=== PATIENT | female | born 1985 | race Caucasian/White ===

== ENCOUNTER 2017-03-23 23:21 | Emergency (ER) | payer SELFPAY ==
[2015-09-18 11:11] VITALS: BMI 19.4
[~2017-03-23 23:21] MED LIST: COLACE100 MG PO; HYDROCODONE-APA1 TAB PO; LYRICA150 MG PO; LYRICA75 MG PO; METAMUCIL FIB1 WAFER PO; PAXIL10 MG PO; PAXIL30 MG PO; PROTONIX I40 MG/VIAL PO; THORAZINE50 MG PO; TRAZODONE HCL150 MG; XANAX1 MG PO
[2017-03-23 23:46] LABS: HEMATOCRIT 37.7 % (36.0-48.0); HEMOGLOBIN 12.9 g/dL (12-16); LYMPHOCYTES 20.6 % (15-50); MCH 30.4 pg (26.0-34.0); MCHC 34.2 g/dL (31.0-37.0); MCV 88.7 fL (80.0-100.0); MEAN PLATELET VOLUME 9.6 fL (7.4-10.4); NEUTROPHILS 72.6 % (40-80); RBC 4.25 10x6/uL (4.00-5.40); RDW 12.8 % (11.5-14.5); WBC 8.2 10x3/uL (4.8-10.8)
[2017-03-23 23:49] LABS: PLATELET COUNT 283 10x3/uL (130-400)
[2017-03-23 23:50] LABS: APPEARANCE CLEAR (CLEAR); BILIRUBIN NEGATIVE (NEGATIVE); COLOR YELLOW (YELLOW); GLUCOSE NEGATIVE (NEGATIVE); KETONE NEGATIVE (NEGATIVE); NITRITE NEGATIVE (NEGATIVE); PROTEIN NEGATIVE (NEGATIVE); UROBILINOGEN NORMAL (NORMAL)
[2017-03-24 00:04] LABS: ALKALINE PHOSPHATASE 73 U/L (46-116); ALT (SGPT) 20 U/L (10-68); AMYLASE - SERUM 30 U/L (25-115); CARBON DIOXIDE 29.4 mmol/L (21.0-32.0); CREATININE - SERUM 0.9 mg/dL (0.6-1.3); GLUCOSE 105 mg/dL (74-106); HCG URINE NEGATIVE (NEGATIVE); LIPASE 64 U/L (73-393); PROTEIN - SERUM 7.4 g/dL (6.4-8.2); eGFR NON AFRICAN AMERICAN 78 mL/min (90-120)
[2017-03-24 00:17] LABS: CHLORIDE - SERUM 99 mmol/L (98-107); SODIUM 138 mmol/L (136-145)
[2017-03-24 00:20] LABS: CALC OSMOLALITY 274 mosm/kg (275-300); UREA NITROGEN 10 mg/dL (7-18)
[2017-03-24 00:22] LABS: POTASSIUM - SERUM 2.9 mmol/L (3.5-5.1)
== END 2017-03-24 04:30 | disposition home or self-care (01) ==
LOC: D.ER 23:21
PROVIDERS: Emergency Medicine
DX: R10.9 Unspecified abdominal pain (principal); K80.50 Calculus of bile duct without cholangitis or cholecystitis without obstruction

== ENCOUNTER 2017-03-24 18:13 | Emergency (ER) | payer SELFPAY ==
[2015-09-18 11:11] VITALS: BMI 19.4
[2017-03-24 20:06] LABS: BASOPHILS 0.4 % (0-2); EOSINOPHILS 7.2 % (0-7); HEMATOCRIT 38.2 % (36.0-48.0); HEMOGLOBIN 12.6 g/dL (12-16); IMMATURE GRANULOCYTES 0.2 % (0-5); LYMPHOCYTES 45.1 % (15-50); MCH 30.2 pg (26.0-34.0); MEAN PLATELET VOLUME 10.3 fL (7.4-10.4); MONOCYTES 6.1 % (2-11); PLATELET COUNT 227 10x3/uL (130-400); RBC 4.17 10x6/uL (4.00-5.40); RDW 13.5 % (11.5-14.5)
[2017-03-24 20:07] LABS: MCV 91.6 fL (80.0-100.0); WBC 4.6 10x3/uL (4.8-10.8)
[2017-03-24 20:34] LABS: ALBUMIN 3.6 g/dL (3.4-5.0); ALKALINE PHOSPHATASE 71 U/L (46-116); ALT (SGPT) 17 U/L (10-68); CALC OSMOLALITY 275 mosm/kg (275-300); CALCIUM 8.6 mg/dL (8.5-10.1); CARBON DIOXIDE 29.4 mmol/L (21.0-32.0); CHLORIDE - SERUM 104 mmol/L (98-107); CREATININE - SERUM 0.7 mg/dL (0.6-1.3); GLUCOSE 99 mg/dL (74-106); PROTEIN - SERUM 6.7 g/dL (6.4-8.2); SODIUM 139 mmol/L (136-145); UREA NITROGEN 8 mg/dL (7-18); eGFR NON AFRICAN AMERICAN > 90 mL/min (90-120)
[2017-03-24 20:37] LABS: POTASSIUM - SERUM 4.1 mmol/L (3.5-5.1)
[2017-03-24 20:52] LABS: APPEARANCE CLEAR (CLEAR); BILIRUBIN NEGATIVE (NEGATIVE); COLOR YELLOW (YELLOW); GLUCOSE NEGATIVE (NEGATIVE); KETONE NEGATIVE (NEGATIVE); NITRITE NEGATIVE (NEGATIVE); PROTEIN NEGATIVE (NEGATIVE); UROBILINOGEN NORMAL (NORMAL)
== END 2017-03-24 23:45 | disposition home or self-care (01) ==
LOC: D.ER 18:13
PROVIDERS: Physician Assistant Medical
DX: R10.9 Unspecified abdominal pain (principal); F17.200 Nicotine dependence, unspecified, uncomplicated

== ENCOUNTER 2017-04-24 09:58 | Emergency (ER) | payer SELFPAY ==
[2015-09-18 11:11] VITALS: BMI 19.4
== END 2017-04-24 11:14 | disposition home or self-care (01) ==
LOC: D.ER 09:58
DX: J11.1 Influenza due to unidentified influenza virus with other respiratory manifestations (principal); F17.200 Nicotine dependence, unspecified, uncomplicated

== ENCOUNTER 2017-05-31 13:28 | Emergency (ER) | payer SELFPAY ==
[2015-09-18 11:11] VITALS: BMI 19.4
== END 2017-05-31 16:28 | disposition home or self-care (01) ==
LOC: D.ER 13:28
DX: M54.12 Radiculopathy, cervical region (principal); F17.200 Nicotine dependence, unspecified, uncomplicated

== ENCOUNTER 2019-02-14 13:48 | Emergency (ER) | payer SELFPAY ==
[~2019-02-14] VITALS: Ht 167.6 cm; Wt 59.1 kg
[2019-02-14 13:55] VITALS: Ht 167.6 cm; Wt 59.1 kg
[2019-02-14] MEDS ORDERED: KEPPRA750 MG PO (13:57)
[2019-02-14] MEDS ORDERED: TOPAMAX50 MG PO (13:57)
[2019-02-14] MEDS ORDERED: TYLENOL W/CODEI1 TAB PO (13:58)
[2019-02-14] MEDS ORDERED: NEURONTIN 300300 MG PO (13:58)
[2019-02-14 14:39] LABS: HEMATOCRIT 42.5 % (36.0-48.0); HEMOGLOBIN 14.2 g/dL (12-16); LYMPHOCYTES 30.7 % (15-50); MCHC 33.4 g/dL (31.0-37.0); MCV 83.7 fL (80.0-100.0); MEAN PLATELET VOLUME 12.5 fL (7.4-10.4); NEUTROPHILS 60.4 % (40-80); PLATELET COUNT 263 10x3/uL (130-400); RBC 5.08 10x6/uL (4.00-5.40); WBC 7.1 10x3/uL (4.8-10.8)
[2019-02-14 14:40] LABS: APPEARANCE CLEAR (CLEAR); BILIRUBIN NEGATIVE (NEGATIVE); COLOR YELLOW (YELLOW); GLUCOSE NEGATIVE (NEGATIVE); KETONE NEGATIVE (NEGATIVE); NITRITE NEGATIVE (NEGATIVE); PROTEIN NEGATIVE (NEGATIVE); SPECIFIC GRAVITY 1.015 (1.005-1.020); UROBILINOGEN NORMAL (NORMAL)
[2019-02-14 14:45] LABS: ALBUMIN 4.6 g/dL (3.4-5.0); ALKALINE PHOSPHATASE 65 U/L (46-116); ALT (SGPT) 16 U/L (10-68); BILIRUBIN - TOTAL 0.41 mg/dL (0.2-1.3); CALC OSMOLALITY 277 mosm/kg (275-300); CALCIUM 9.8 mg/dL (8.5-10.1); CARBON DIOXIDE 22.8 mmol/L (21.0-32.0); CHLORIDE - SERUM 102 mmol/L (98-107); CREATININE - SERUM 0.9 mg/dL (0.6-1.3); GLUCOSE 120 mg/dL (74-106); POTASSIUM - SERUM 3.4 mmol/L (3.5-5.1); PROTEIN - SERUM 8.2 g/dL (6.4-8.2); SODIUM 140 mmol/L (136-145); UREA NITROGEN 8 mg/dL (7-18); eGFR NON AFRICAN AMERICAN 77 mL/min (90-120)
[2019-02-14 14:47] LABS: CREATINE KINASE 50 UL (21-215); MAGNESIUM - SERUM 2.3 mg/dL (1.8-2.4)
[2019-02-14 15:01] LABS: UDS - AMPHET POSITIVE QUAL (NEGATIVE); UDS - BARB NEGATIVE QUAL (NEGATIVE); UDS - BENZO POSITIVE QUAL (NEGATIVE); UDS - COCAINE NEGATIVE QUAL (NEGATIVE); UDS - OPIATE NEGATIVE QUAL (NEGATIVE); UDS - PCP NEGATIVE QUAL (NEGATIVE); UDS - THC POSITIVE QUAL (NEGATIVE)
[2019-02-14 15:03] LABS: HCG SERUM NEGATIVE (NEGATIVE)
[2019-02-14 16:35] VITALS: BP 132/79
== END 2019-02-14 16:35 | disposition home or self-care (01) ==
LOC: D.ER 13:48
PROVIDERS: Family Medicine
DX: R56.9 Unspecified convulsions (principal)

== ENCOUNTER 2019-02-24 19:34 | Emergency (ER) | payer SELFPAY ==
[~2019-02-24] VITALS: Ht 167.6 cm; Wt 59.1 kg
[~2019-02-24 19:34] MED LIST changes: +KEPPRA750 MG PO; +NEURONTIN 300300 MG PO; +TOPAMAX50 MG PO; +TYLENOL W/CODEI1 TAB PO
[2019-02-24 19:41] VITALS: Ht 167.6 cm; Wt 59.1 kg
[2019-02-24 20:45] LABS: BASOPHILS 0.8 % (0-2); EOSINOPHILS 5.8 % (0-7); HEMATOCRIT 37.5 % (36.0-48.0); HEMOGLOBIN 12.3 g/dL (12-16); LYMPHOCYTES 31.7 % (15-50); MCHC 32.8 g/dL (31.0-37.0); MCV 85.4 fL (80.0-100.0); MONOCYTES 9.8 % (2-11); NEUTROPHILS 51.9 % (40-80); PLATELET COUNT 269 10x3/uL (130-400); RBC 4.39 10x6/uL (4.00-5.40); RDW 16.5 % (11.5-14.5); WBC 6.5 10x3/uL (4.8-10.8)
[2019-02-24 20:57] LABS: ALKALINE PHOSPHATASE 55 U/L (46-116); ALT (SGPT) 15 U/L (10-68); BILIRUBIN - TOTAL 0.45 mg/dL (0.2-1.3); CALC OSMOLALITY 286 mosm/kg (275-300); CALCIUM 8.8 mg/dL (8.5-10.1); CARBON DIOXIDE 18.2 mmol/L (21.0-32.0); CHLORIDE - SERUM 111 mmol/L (98-107); CREATININE - SERUM 0.8 mg/dL (0.6-1.3); GLUCOSE 98 mg/dL (74-106); POTASSIUM - SERUM 3.4 mmol/L (3.5-5.1); PROTEIN - SERUM 6.9 g/dL (6.4-8.2); SODIUM 145 mmol/L (136-145); UREA NITROGEN 7 mg/dL (7-18); eGFR NON AFRICAN AMERICAN 89 mL/min (90-120)
[2019-02-24 21:19] LABS: APPEARANCE CLEAR (CLEAR); BILIRUBIN NEGATIVE (NEGATIVE); COLOR YELLOW (YELLOW); GLUCOSE NEGATIVE (NEGATIVE); KETONE MODERATE mg/dL (NEGATIVE); NITRITE NEGATIVE (NEGATIVE); PROTEIN TRACE mg/dL (NEGATIVE); SPECIFIC GRAVITY 1.015 (1.005-1.020); UROBILINOGEN NORMAL (NORMAL)
[2019-02-24 21:20] LABS: BACTERIA FEW /hpf (NEGATIVE); EPITHELIAL CELLS 0-5 /hpf (0-5); RED CELLS - URINE 0-5 /hpf (0-5); WHITE CELLS - URINE 0-5 /hpf (NEGATIVE)
[2019-02-24 21:21] LABS: UDS - AMPHET POSITIVE QUAL (NEGATIVE); UDS - BARB NEGATIVE QUAL (NEGATIVE); UDS - BENZO POSITIVE QUAL (NEGATIVE); UDS - COCAINE NEGATIVE QUAL (NEGATIVE); UDS - OPIATE NEGATIVE QUAL (NEGATIVE); UDS - PCP NEGATIVE QUAL (NEGATIVE); UDS - THC POSITIVE QUAL (NEGATIVE)
[2019-02-25 00:02] VITALS: BP 118/61
== END 2019-02-25 00:02 | disposition home or self-care (01) ==
LOC: D.ER 19:34
PROVIDERS: Family Medicine
DX: G40.909 Epilepsy, unspecified, not intractable, without status epilepticus (principal)

== ENCOUNTER 2019-04-07 14:07 | Emergency (ER) | payer SELFPAY ==
[~2019-04-07] VITALS: Ht 167.6 cm; Wt 59.1 kg
[2019-04-07 14:34] VITALS: Ht 167.6 cm; Wt 59.1 kg
[2019-04-07 15:22] LABS: HEMATOCRIT 42.8 % (36.0-48.0); HEMOGLOBIN 14.1 g/dL (12-16); LYMPHOCYTES 30.9 % (15-50); MCH 29.4 pg (26.0-34.0); MCHC 32.9 g/dL (31.0-37.0); MCV 89.4 fL (80.0-100.0); MEAN PLATELET VOLUME 11.3 fL (7.4-10.4); NEUTROPHILS 60.8 % (40-80); PLATELET COUNT 270 10x3/uL (130-400); RBC 4.79 10x6/uL (4.00-5.40); RDW 18.3 % (11.5-14.5); WBC 5.8 10x3/uL (4.8-10.8)
[2019-04-07 15:31] LABS: APPEARANCE HAZY (CLEAR); BILIRUBIN NEGATIVE (NEGATIVE); COLOR YELLOW (YELLOW); GLUCOSE NEGATIVE (NEGATIVE); KETONE NEGATIVE (NEGATIVE); NITRITE NEGATIVE (NEGATIVE); PROTEIN NEGATIVE (NEGATIVE); UROBILINOGEN NORMAL (NORMAL)
[2019-04-07 15:33] LABS: BACTERIA FEW /hpf (NEGATIVE); EPITHELIAL CELLS 0-5 /hpf (0-5); WHITE CELLS - URINE 0-5 /hpf (NEGATIVE)
[2019-04-07 15:34] LABS: HCG SERUM NEGATIVE (NEGATIVE)
[2019-04-07 15:35] LABS: CALC OSMOLALITY 285 mosm/kg (275-300); CALCIUM 8.8 mg/dL (8.5-10.1); CARBON DIOXIDE 29.3 mmol/L (21.0-32.0); CHLORIDE - SERUM 104 mmol/L (98-107); CREATININE - SERUM 0.7 mg/dL (0.6-1.3); GLUCOSE 104 mg/dL (74-106); POTASSIUM - SERUM 3.4 mmol/L (3.5-5.1); SODIUM 145 mmol/L (136-145); UREA NITROGEN 5 mg/dL (7-18); eGFR NON AFRICAN AMERICAN > 90 mL/min (90-120)
[2019-04-07 15:46] LABS: ALKALINE PHOSPHATASE 58 U/L (46-116); ALT (SGPT) 18 U/L (10-68); BILIRUBIN - TOTAL 0.28 mg/dL (0.2-1.3); HCG - QUANTITATIVE (MATERNAL) 1 mIU/mL; PROTEIN - SERUM 7.6 g/dL (6.4-8.2)
[2019-04-07] MEDS ORDERED: TYLENOL W/CODEI1 TAB PO (18:50)
[2019-04-07 19:32] VITALS: BP 127/73
[2019-04-08] MEDS ORDERED: HYDROCODON-ACE1 EA10 PO (16:51)
[2019-04-08] MEDS ORDERED: ROBAXIN500 MG PO (16:51)
== END 2019-04-07 19:32 | disposition home or self-care (01) ==
LOC: D.ER 14:07
PROVIDERS: Family Medicine
DX: O03.9 Complete or unspecified spontaneous abortion without complication (principal); R52 Pain, unspecified; R25.2 Cramp and spasm

== ENCOUNTER 2019-04-08 15:40 | Emergency (ER) | payer SELFPAY ==
[~2019-04-08] VITALS: Ht 167.6 cm; Wt 56.8 kg
[2019-04-08 15:56] VITALS: Ht 167.6 cm; Wt 56.8 kg
[2019-04-08] MEDS ORDERED: ROBAXIN500 MG PO (16:51)
[2019-04-08] MEDS ORDERED: HYDROCODON-ACE1 EA10 PO (16:51)
[2019-04-08 17:22] VITALS: BP 128/95
== END 2019-04-08 17:18 | disposition home or self-care (01) ==
LOC: D.ER 15:40
DX: O03.9 Complete or unspecified spontaneous abortion without complication (principal); R52 Pain, unspecified

== ENCOUNTER 2019-05-01 18:37 | Emergency (ER) | payer SELFPAY ==
[~2019-05-01] VITALS: Ht 167.6 cm; Wt 59.1 kg
[~2019-05-01 18:37] MED LIST changes: +HYDROCODON-ACE1 EA10 PO; +ROBAXIN500 MG PO
[2019-05-01 18:42] VITALS: Ht 167.6 cm; Wt 59.1 kg
[2019-05-01 19:32] LABS: BASOPHILS 0.1 % (0-2); EOSINOPHILS 0 % (0-7); HEMATOCRIT 42.3 % (36.0-48.0); HEMOGLOBIN 13.8 g/dL (12-16); IMMATURE GRANULOCYTES 0.1 % (0-5); LYMPHOCYTES 7.7 % (15-50); MCH 29.9 pg (26.0-34.0); MCHC 32.6 g/dL (31.0-37.0); MCV 91.8 fL (80.0-100.0); MEAN PLATELET VOLUME 11.5 fL (7.4-10.4); MONOCYTES 2.9 % (2-11); NEUTROPHILS 89.2 % (40-80); RBC 4.61 10x6/uL (4.00-5.40); RDW 17.7 % (11.5-14.5); WBC 11.6 10x3/uL (4.8-10.8)
[2019-05-01 19:33] LABS: PLATELET COUNT 332 10x3/uL (130-400)
[2019-05-01 19:41] LABS: CALC OSMOLALITY 281 mosm/kg (275-300); CALCIUM 9.6 mg/dL (8.5-10.1); CHLORIDE - SERUM 105 mmol/L (98-107); CREATININE - SERUM 0.7 mg/dL (0.6-1.3); GLUCOSE 145 mg/dL (74-106); POTASSIUM - SERUM 4.1 mmol/L (3.5-5.1); SODIUM 139 mmol/L (136-145); UREA NITROGEN 14 mg/dL (7-18); eGFR NON AFRICAN AMERICAN > 90 mL/min (90-120)
[2019-05-01 19:47] LABS: ALBUMIN 3.8 g/dL (3.4-5.0); ALKALINE PHOSPHATASE 69 U/L (46-116); ALT (SGPT) 16 U/L (10-68); PROTEIN - SERUM 8.2 g/dL (6.4-8.2)
[2019-05-01 19:51] LABS: BILIRUBIN - TOTAL 0.08 mg/dL (0.2-1.3)
[2019-05-01] MEDS ORDERED: ALBUTEROL SULF8.5 GM INH (20:29)
[2019-05-01] MEDS ORDERED: ULTRAM50 MG PO (20:29)
[2019-05-01 21:24] VITALS: BP 117/69
== END 2019-05-01 21:24 | disposition home or self-care (01) ==
LOC: D.ER 18:37
PROVIDERS: Emergency Medicine
DX: H66.91 Otitis media, unspecified, right ear (principal); Z72.0 Tobacco use; J40 Bronchitis, not specified as acute or chronic

== ENCOUNTER 2019-05-04 13:19 | Emergency (ER) | payer SELFPAY ==
[~2019-05-04] VITALS: Ht 167.6 cm; Wt 59.1 kg
[~2019-05-04 13:19] MED LIST changes: +ALBUTEROL SULF8.5 GM INH; +ULTRAM50 MG PO
[2019-05-04 13:23] VITALS: BP 136/86; Ht 167.6 cm; Wt 59.1 kg
[2019-05-04] MEDS ORDERED: AMOXICILLIN500 M1 PO (13:26)
[2019-05-04] MEDS ORDERED: PREDNISONE10 MG PO (13:27)
[2019-05-04] MEDS ORDERED: PHENERGAN6.25 MG/5 PO (13:30)
[2019-05-04] MEDS ORDERED: GENTAK3.5 GM EACH EYE (14:16)
[2019-05-04] MEDS ORDERED: FLUTICASONE PRO16 GM NASAL (14:21)
[2019-05-04] MEDS ORDERED: TESSALON PERLE100 MG PO (15:41)
[2019-05-04] MEDS ORDERED: OMNICEF300 MG PO (15:41)
== END 2019-05-04 16:23 | disposition home or self-care (01) ==
LOC: D.ER 13:19
DX: H66.91 Otitis media, unspecified, right ear (principal); J40 Bronchitis, not specified as acute or chronic; Z72.0 Tobacco use

== ENCOUNTER 2019-05-13 16:00 | Emergency (ER) | payer SELFPAY ==
[~2019-05-13] VITALS: Ht 167.6 cm; Wt 52.3 kg
[~2019-05-13 16:00] MED LIST changes: +AMOXICILLIN500 M1 PO; +FLUTICASONE PRO16 GM NASAL; +GENTAK3.5 GM EACH EYE; +OMNICEF300 MG PO; +PHENERGAN6.25 MG/5 PO; +PREDNISONE10 MG PO; +TESSALON PERLE100 MG PO
[2019-05-13 16:22] VITALS: Ht 167.6 cm; Wt 52.3 kg
[2019-05-13 16:48] LABS: BASOPHILS 0.4 % (0-2); EOSINOPHILS 1.3 % (0-7); HEMOGLOBIN 13.6 g/dL (12-16); IMMATURE GRANULOCYTES 0.5 % (0-5); LYMPHOCYTES 22.1 % (15-50); MCHC 32.4 g/dL (31.0-37.0); MCV 95.7 fL (80.0-100.0); MEAN PLATELET VOLUME 10.5 fL (7.4-10.4); MONOCYTES 10.8 % (2-11); NEUTROPHILS 64.9 % (40-80); RBC 4.39 10x6/uL (4.00-5.40); RDW 17.5 % (11.5-14.5); WBC 10.8 10x3/uL (4.8-10.8)
[2019-05-13 16:59] LABS: CALC OSMOLALITY 276 mosm/kg (275-300); CARBON DIOXIDE 22.2 mmol/L (21.0-32.0); CHLORIDE - SERUM 106 mmol/L (98-107); CREATININE - SERUM 0.7 mg/dL (0.6-1.3); POTASSIUM - SERUM 3.4 mmol/L (3.5-5.1); SODIUM 141 mmol/L (136-145); UREA NITROGEN 7 mg/dL (7-18); eGFR NON AFRICAN AMERICAN > 90 mL/min (90-120)
[2019-05-13 17:01] LABS: GLUCOSE 66 mg/dL (74-106)
[2019-05-13 17:02] LABS: PLATELET COUNT 457 10x3/uL (130-400)
[2019-05-13 17:05] LABS: ALBUMIN 4.2 g/dL (3.4-5.0); ALKALINE PHOSPHATASE 55 U/L (46-116); ALT (SGPT) 22 U/L (10-68); BILIRUBIN - TOTAL 0.38 mg/dL (0.2-1.3); PROTEIN - SERUM 8.2 g/dL (6.4-8.2)
[2019-05-13 17:10] LABS: HCG SERUM POSITIVE (NEGATIVE)
[2019-05-13 17:29] LABS: APPEARANCE CLEAR (CLEAR); BILIRUBIN NEGATIVE (NEGATIVE); COLOR YELLOW (YELLOW); GLUCOSE NEGATIVE (NEGATIVE); KETONE NEGATIVE (NEGATIVE); NITRITE NEGATIVE (NEGATIVE); PROTEIN NEGATIVE (NEGATIVE); UROBILINOGEN NORMAL (NORMAL)
[2019-05-13 18:02] LABS: UDS - AMPHET NEGATIVE QUAL (NEGATIVE); UDS - BARB NEGATIVE QUAL (NEGATIVE); UDS - BENZO NEGATIVE QUAL (NEGATIVE); UDS - COCAINE NEGATIVE QUAL (NEGATIVE); UDS - OPIATE NEGATIVE QUAL (NEGATIVE); UDS - PCP NEGATIVE QUAL (NEGATIVE); UDS - THC NEGATIVE QUAL (NEGATIVE)
[2019-05-13 20:08] VITALS: BP 101/51
== END 2019-05-13 20:11 | disposition home or self-care (01) ==
LOC: D.ER 16:00
PROVIDERS: Family Medicine
DX: O26.891 Other specified pregnancy related conditions, first trimester (principal); R10.2 Pelvic and perineal pain; Z86.69 Personal history of other diseases of the nervous system and sense organs

== ENCOUNTER 2019-05-17 14:51 | Emergency (ER) | payer SELFPAY ==
[~2019-05-17] VITALS: Ht 167.6 cm; Wt 54.5 kg
[2019-05-17 14:51] VITALS: Ht 167.6 cm; Wt 54.5 kg
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
[2019-05-18 02:47] VITALS: BP 105/54
== END 2019-05-18 02:47 | disposition home or self-care (01) ==
LOC: D.ER 14:51
DX: F15.10 Other stimulant abuse, uncomplicated (principal); F15.159 Other stimulant abuse with stimulant-induced psychotic disorder, unspecified; F44.5 Conversion disorder with seizures or convulsions